=== PATIENT | female | born 1985 | race Caucasian/White ===

== ENCOUNTER 2020-02-20 08:47 | Emergency (ER) | payer SELFPAY ==
[~2020-02-20] VITALS: Ht 157.5 cm; Wt 45.4 kg
[2020-02-20] MEDS ORDERED: HYDPAM25 PO (09:21)
[2020-02-20] MEDS ORDERED: ALBU90OI INH ×2 (09:21→09:31)
[2020-02-20] MEDS ORDERED: EPINEPHRIN0.15 MG/03 IM (09:22)
[2020-02-20] MEDS ORDERED: Morphine Sulfat15 MG (09:22)
[2020-02-20] MEDS ORDERED: Vistaril25 MG PO (09:31)
== END 2020-02-20 09:37 | disposition home or self-care (01) ==
LOC: ER 08:47
DX: Z76.0 Encounter for issue of repeat prescription (principal); F41.9 Anxiety disorder, unspecified; F32.9 Major depressive disorder, single episode, unspecified; J45.909 Unspecified asthma, uncomplicated; Z79.899 Other long term (current) drug therapy; Z88.0 Allergy status to penicillin; Z88.6 Allergy status to analgesic agent; Z88.1 Allergy status to other antibiotic agents; Z91.018 Allergy to other foods; Z91.09 Other allergy status, other than to drugs and biological substances; Z88.8 Allergy status to other drugs, medicaments and biological substances
CPT/HCPCS: 99281

== ENCOUNTER 2020-02-24 17:09 | Emergency (ER) | payer SELFPAY ==
[~2020-02-24] VITALS: Ht 157.5 cm; Wt 45.4 kg
[~2020-02-24 17:09] MED LIST: ALBU90OI INH; EPINEPHRIN0.15 MG/03 IM; HYDPAM25 PO; Morphine Sulfat15 MG; Vistaril25 MG PO
== END 2020-02-24 17:24 | disposition home or self-care (01) ==
LOC: ER 17:09
DX: Z76.0 Encounter for issue of repeat prescription (principal); R09.81 Nasal congestion; J45.909 Unspecified asthma, uncomplicated; F41.9 Anxiety disorder, unspecified; F32.9 Major depressive disorder, single episode, unspecified; Z88.0 Allergy status to penicillin; Z88.6 Allergy status to analgesic agent; Z91.09 Other allergy status, other than to drugs and biological substances; Z88.1 Allergy status to other antibiotic agents; Z91.018 Allergy to other foods; Z88.8 Allergy status to other drugs, medicaments and biological substances; Z79.899 Other long term (current) drug therapy
CPT/HCPCS: 99281